=== PATIENT | male | born 1980 | race Hispanic/Latino ===

== ENCOUNTER 2019-03-28 19:21 | Emergency (ER) | payer BC ==
[2019-03-28] MEDS ORDERED: LIDOCAINE 1% W/ EPINEPHRINE 20 ML VIAL INJ ONE (19:22)
[2019-03-28] MEDS ORDERED: TETANUS,DIPHTHERIA,PERTUSSIS 1 EA SYG IM ONE (19:22)
--- NOTE | 2019-03-28 19:26 | ED.PDOC ---
History of Present Illness - General Time Seen by Provider: 03/28/19 19:22 Source: patient Exam Limitations: no limitations - History of Present Illness Initial Comments: Pt is a 38 yo male that presents to ED for left hand laceration. States 20 minutes [employer], he was walking with a glass cup and tripped over [employer] game and fell and the glass cup cut palm of left hand. Had bleeding that was controlled with pressure. Denies hitting head, VALDEZ, neck pain or otherr injuries. States he is able to open hnd and make a fist w/o difficulty. Last tetanus is unknown. Home Medications: Ambulatory Orders Cephalexin Monohydrate [Keflex] 500 mg PO QID 7 Days #28 cap 03/28/19 Review of Systems - Review of Systems Constitutional: Denies: chills, fever, weakness Respiratory: Denies: cough, short of breath Cardiology: Denies: chest pain, edema, palpitations, syncope Gastrointestinal/Abdominal: Denies: abdominal pain, diarrhea, nausea, vomiting Musculoskeletal: States: other - left hand injury. Denies: back pain, neck pain Skin: States: other - laceration to hand All other Systems: Reviewed and Negative Physical Exam - Physical Exam General Appearance: Alert, Comfortable, No apparent distress Head Injury: no evidence of injury Peripheral Pulses: radial,right: 2+, radial,left: 2+ Cardiovascular/Respiratory: regular rate, rhythm, normal peripheral pulses, normal breath sounds, no respiratory distress Gastrointestinal/Abdominal: non tender, soft, no pulsatile mass Back Exam: normal inspection, no CVA tenderness, no vertebral tenderness Extremity Exam: other - Pt has 3 cm, horizontal laceration to ulnar side of left mid palm. no active bleeding. Cap refill <2 seconds x 5. Has 5/5 flexion and extension strength to digits of left hand w/o pain Progress - Progress Progress: 03/28/19 19:49 Pt cut the palmar side on left palm just [employer]. There is no neuro or vascular injury. Tetanus updated. irrigated thoroughly with saline and sutured. No complications. Will start prophylactic abx x 1 week. Wound care instructions given and will return for suture removal in 10-12 days. SRP given. Procedures - Laceration/Wound Repair Left Hand Wound Length (cm): 3 Wound's Depth, Shape: superficial, linear Wound Explored: clean Irrigated w/ Saline (cc's): 1,000 Betadine Prep?: No Anesthesia: Lidocaine w/ Epi Volume Anesthetic (cc's): 6 Wound Repaired With: sutures Suture Size/Type: 4:0, prolene Number of Sutures: 5 Layer Closure?: No Departure - Departure Clinical Impression: Laceration of left hand Qualifiers: Encounter type: initial encounter Foreign body presence: without foreign body Qualified Code(s): S61.412A - Laceration without foreign body of left hand, initial encounter Time of Disposition: 19:46 Disposition: Discharge to Home or Self Care Condition: Good Instructions: DI for Laceration Repair Diet: resume usual diet Activity: increase activity as tolerated Prescriptions: Cephalexin Monohydrate [Keflex] 500 mg PO QID 7 Days #28 cap Home Medications: Ambulatory Orders Cephalexin Monohydrate [Keflex] 500 mg PO QID 7 Days #28 cap 03/28/19 Additional Instructions: Keep wound clean and dry. Return for suture removal in 10-12 days for suture removal. Take antibiotics as directed
[2019-03-28 19:44] VITALS: TEMP 96.5; O2SAT 99
[2019-03-28] MEDS ORDERED: NEOMYCIN-BACITRACIN-POLYMYXIN 0.9 GM UD TOP ONE (19:44)
[2019-03-28 20:00] VITALS: BP 128/100
== END 2019-03-28 19:59 | disposition home or self-care (01) ==
LOC: ER 19:21
DX: S61.412A Laceration without foreign body of left hand, initial encounter (principal); W25.XXXA Contact with sharp glass, initial encounter; Y93.01 Activity, walking, marching and hiking; Y92.9 Unspecified place or not applicable